=== PATIENT | male | born 1950 | race American Indian/Alaskan Native ===

== ENCOUNTER 2017-10-26 11:36 | Emergency (ER) | payer MEDICARE ==
[2017-10-26 15:33] VITALS: BP 108/76
--- NOTE | 2017-10-26 16:14 | XRay Report ---
FINAL REPORT EXAM: XR CHEST ROUTINE 2V HISTORY: recent pna [facility] TECHNIQUE: Two views of the chest Comparison: None FINDINGS: There are ill-defined foci suspicious for pulmonary nodules projecting over the left 5th posterior rib, 6 posterior rib and 8 posterior rib. There is also mild nodularity in the right lateral lung base. These findings are suspicious for pulmonary nodules. There is also mild irregularity of the thorax and a may represent healing rib fractures. There are healing rib fractures left posterior 7th and 8th ribs. The underlying lungs are emphysematous. Heart size is normal. The lateral left hemidiaphragm is even treated. There is mild peribronchial thickening. The imaged axial skeleton is unremarkable. IMPRESSION: Findings suspicious for multiple pulmonary nodules. There are also healing rib fractures. Recommend CT chest. Peribronchial thickening especially in the perihilar in inferior right medial lung base. No pleural effusion.
[2017-10-26 16:52] LABS: Basophils % (Auto) 0.4 % (0.0-1.8); Hematocrit 43.5 % (35.5-45.6); Hemoglobin 14.4 gm/dl (11.8-15.2); Lymphocytes # (Auto) 0.9 K/mm3 (1.2-5.4); Lymphocytes % (Auto) 13.8 % (13.4-35.0); Mean Corpuscular HGB Conc 33 % (32-34); Mean Corpuscular Hemoglobin 31 pg (28-32); Mean Corpuscular Volume 95 fl (84-94); Monocytes # (Auto) 0.3 K/mm3 (0.0-0.8); Monocytes % (Auto) 5.2 % (0.0-7.3); Platelet Count 323 K/mm3 (140-440); Red Cell Distribution Width 14.4 % (13.2-15.2)
[2017-10-26 17:09] LABS: Alanine Aminotransferase 18 units/L (7-56); Albumin 4.2 g/dL (3.9-5); BUN/Creatinine Ratio 15; Blood Urea Nitrogen 9 mg/dL (9-20); Calcium 9.2 mg/dL (8.4-10.2); Hemolysis Index 6
== END 2017-10-26 22:45 | disposition left against medical advice (07) ==
LOC: ED 11:36
DX: R06.09 Other forms of dyspnea (principal); R05 Cough; Z53.21 Procedure and treatment not carried out due to patient leaving prior to being seen by health care provider
CPT/HCPCS: 36415; 71046; 80053; 85025

== ENCOUNTER 2017-10-27 16:34 | Emergency (ER) | payer MEDICARE ==
[2017-10-27 17:46] VITALS: BP 110/72
--- NOTE | 2017-10-27 22:59 | Emergency Department Report ---
ED General Adult HPI - General Chief complaint: Medical Clearance Stated complaint: LAB RESULTS Time Seen by Provider: 10/27/17 22:31 Source: patient Mode of arrival: Ambulatory Limitations: No Limitations - History of Present Illness Initial comments: Patient is a 67-year-old -[place] male history of seizures bronchitis presents from [facility] living home complaint of cough productive clear yellow with nocturnal wheezing times one week patient states multiple sick contacts with URIs was sent by administration for med clearance chest x- xray patient denies fevers or chills or shortness of breath no chest pain no nausea vomiting Onset/Timin -: week(s) Radiation: non-radiation Severity scale (0 -10): 3 Quality: other (cough ) Consistency: intermittent Worsens with: none Associated Symptoms: cough, fever/chills. denies: confusion, chest pain, headaches, loss of appetite, malaise, nausea/vomiting, rash, seizure, shortness of breath, syncope, weakness Treatments Prior to Arrival: none - Related Data Previous Rx's Medication Instructions Recorded Last Taken Type ALBUTEROL Inhaler [ProAir HFA 2 puff IH QID PRN #1 inhalation 10/27/17 Unknown Rx Inhaler] Azithromycin [Zithromax Z-SANJU] 0 mg PO DAILY #6 tab 10/27/17 Unknown Rx Codeine Phosphate/Guaifenesin 5 ml PO TID PRN #120 ml 10/27/17 Unknown Rx [Guaifenesin-Codeine Syrup] predniSONE [Deltasone] 40 mg PO QDAY #10 tab 10/27/17 Unknown Rx Allergies Allergy/AdvReac Type Severity Reaction Status Date / Time No Known Allergies Allergy Verified 10/26/17 12:59 ED Review of Systems ROS: Stated complaint: LAB RESULTS Other details as noted in HPI Constitutional: chills, fever Eyes: denies: eye pain, eye discharge, vision change ENT: ear pain, throat pain, congestion. denies: hearing loss, epistaxis Respiratory: cough. denies: orthopnea, shortness of breath, SOB with exertion, SOB at rest, wheezing Cardiovascular: denies: chest pain, palpitations, dyspnea on exertion, edema, syncope, paroxysmal nocturnal dyspnea Endocrine: no symptoms reported. denies: excessive sweating, flushing, intolerance to cold, intolerance to heat Gastrointestinal: denies: as per HPI, nausea, vomiting, diarrhea, constipation Genitourinary: denies: urgency, dysuria, frequency, hematuria, discharge, testicular pain, testicular mass Musculoskeletal: denies: back pain, joint swelling, arthralgia Skin: denies: rash, lesions Neurological: denies: headache, weakness, paresthesias Psychiatric: denies: anxiety, depression Hematological/Lymphatic: denies: easy bleeding, easy bruising ED Past Medical Hx - Past Medical History Hx Seizures: Yes - Surgical History Past Surgical History?: No - Social History Smoking Status: Current Every Day Smoker Substance Use Type: Alcohol - Medications Home Medications: Home Medications Medication Instructions Recorded Confirmed Last Taken Type ALBUTEROL Inhaler [ProAir HFA 2 puff IH QID PRN #1 inhalation 10/27/17 Unknown Rx Inhaler] Azithromycin [Zithromax Z-SANJU] 0 mg PO DAILY #6 tab 10/27/17 Unknown Rx Codeine Phosphate/Guaifenesin 5 ml PO TID PRN #120 ml 10/27/17 Unknown Rx [Guaifenesin-Codeine Syrup] predniSONE [Deltasone] 40 mg PO QDAY #10 tab 10/27/17 Unknown Rx ED Physical Exam - General Limitations: No Limitations General appearance: alert, in no apparent distress - Head Head exam: Present: atraumatic, normocephalic - Eye Eye exam: Present: normal appearance, PERRL, EOMI Pupils: Present: normal accommodation - ENT ENT exam: Present: normal exam, mucous membranes moist (nose boggy clear post nasal drip ), TM's normal bilaterally - Expanded ENT Exam Expanded Ear exam: Present: normal external inspection Mouth exam: Present: tongue normal. Absent: trismus Throat exam: Positive: tonsillar erythema. Negative: tonsillar exudate, R peritonsillar mass, L peritonsillar mass - Neck Neck exam: Present: normal inspection, full ROM. Absent: tenderness, meningismus, lymphadenopathy, thyromegaly - Respiratory Respiratory exam: Present: normal lung sounds bilaterally. Absent: respiratory distress, wheezes, rales, rhonchi, stridor, chest wall tenderness - Cardiovascular Cardiovascular Exam: Present: regular rate, normal rhythm, normal heart sounds. Absent: systolic murmur, diastolic murmur, rubs, gallop - GI/Abdominal GI/Abdominal exam: Present: soft, normal bowel sounds. Absent: distended, tenderness, guarding, rebound, rigid, organomegaly, mass, bruit, pulsatile mass , hernia - Rectal Rectal exam: Present: deferred - Extremities Exam Extremities exam: Present: normal inspection - Back Exam Back exam: Present: normal inspection, full ROM. Absent: tenderness, CVA tenderness (R), CVA tenderness (L), muscle spasm, paraspinal tenderness, vertebral tenderness, rash noted - Neurological Exam Neurological exam: Present: alert, oriented X3, CN II-XII intact, normal gait, reflexes normal - Psychiatric Psychiatric exam: Present: normal affect, normal mood - Skin Skin exam: Present: warm, dry, intact, normal color. Absent: rash ED Course Vital Signs 10/27/17 17:44 Temperature 99.1 F Pulse Rate 98 H Respiratory 18 Rate Blood Pressure 110/72 O2 Sat by Pulse 97 Oximetry ED Medical Decision Making - Radiology Data Radiology results: report reviewed, image reviewed multiple nodules , healing rib fractures, , preibronchial thickening murmur - Medical Decision Making labs noted from yesterday normal chest x-ray noted from yesterday no change from previous with multiple nodules suspicious radiology recommends follow-up with PCP or or pulmonology exam:pt appears well nontoxic ent: tms normal, nose boggy clear post nasal drip no polyps no obstruction pharynx mild erythema no exudate no swelling no stridor, lungs clear no wheezing, cxr: no acute findings no opacities no infiltrates, multiple nodules, follow up chest CT recommended, known to patient as chronic has follow up scheduled at [facility] for follow up , lab noted normal: plan tx for bronchitis refill albuterol , follow up with [facility] as scheduled, Critical care attestation.: If time is entered above; I have spent that time in minutes in the direct care of this critically ill patient, excluding procedure time. ED Disposition Clinical Impression: Bronchitis, Pulmonary nodules URI (upper respiratory infection) Qualifiers: URI type: unspecified viral URI Qualified Code(s): J06.9 - Acute upper respiratory infection, unspecified Disposition: TO HOME OR SELFCARE Is pt being admited?: No Does the pt Need Aspirin: No Condition: Good Instructions: Chronic Bronchitis (ED) Prescriptions: ALBUTEROL Inhaler [ProAir HFA Inhaler] 2 puff IH QID PRN #1 inhalation PRN Reason: Shortness Of Breath Azithromycin [Zithromax Z-SANJU] 0 mg PO DAILY #6 tab Codeine Phosphate/Guaifenesin [Guaifenesin-Codeine Syrup] 5 ml PO TID PRN #120 ml PRN Reason: cough predniSONE [Deltasone] 40 mg PO QDAY #10 tab Referrals: [facility] [Outside] - 3-5 Days Forms: Work/School Release Form(ED) Time of Disposition: 23:10
== END 2017-10-27 22:55 | disposition home or self-care (01) ==
LOC: ED 16:34
DX: J40 Bronchitis, not specified as acute or chronic (principal); R91.8 Other nonspecific abnormal finding of lung field; F17.200 Nicotine dependence, unspecified, uncomplicated
CPT/HCPCS: 99282

== ENCOUNTER 2018-04-01 16:40 | Emergency (ER) | payer MEDICARE ==
[2018-04-01 17:12] VITALS: BP 133/89
[2018-04-01] MEDS ORDERED: MOTRIN PO ONE (20:40)
[2018-04-01] MEDS ORDERED: DECADRON IM ONE (20:40)
--- NOTE | 2018-04-01 20:42 | Emergency Department Report ---
- General Chief Complaint: Upper Respiratory Infection Stated Complaint: COUGHING UP BLOOD Time Seen by Provider: 04/01/18 20:24 Source: patient Mode of arrival: Ambulatory Limitations: No Limitations - History of Present Illness Initial Comments: 67-year-old -Honduran male was sent here from [facility] because he' s had a cough 1 week. Patient reports has a past medical history of hypertension, depression, anxiety, seizures, drug abuse and alcohol abuse. Patient denies any fever or chills. Patient does report he's been taken Mucinex for his cough. Patient also complains of pain in his left great toe he reports that it feels like his gout is flaring up. MD Complaint: cough Severity: moderate Severity scale (0 -10): 6 Quality: burning, stabbing Consistency: intermittent Improves With: nothing Worsens With: nothing Associated Symptoms: cough. denies: fever, chills, headache, rhinorrhea, nasal congestion, sore throat, nausea, vomiting Treatments Prior to Arrival: "cold medicine" - Related Data Previous Rx's Medication Instructions Recorded Last Taken Type ALBUTEROL Inhaler [ProAir HFA 2 puff IH QID PRN #1 inhalation 10/27/17 Unknown Rx Inhaler] Azithromycin [Zithromax Z-SANJU] 0 mg PO DAILY #6 tab 10/27/17 Unknown Rx Codeine Phosphate/Guaifenesin 5 ml PO TID PRN #120 ml 10/27/17 Unknown Rx [Guaifenesin-Codeine Syrup] predniSONE [Deltasone] 40 mg PO QDAY #10 tab 10/27/17 Unknown Rx Benzonatate [Tessalon Perles] 100 mg PO Q8HR #30 capsule 04/01/18 Unknown Rx Naproxen [Naprosyn] 500 mg PO BID #20 tablet 04/01/18 Unknown Rx Prednisone [predniSONE 10 mg 10 mg PO .TAPER #1 tab.ds.pk 04/01/18 Unknown Rx (6-Day Pack, 21 Tabs)] Allergies Allergy/AdvReac Type Severity Reaction Status Date / Time No Known Allergies Allergy Verified 10/26/17 12:59 ED Review of Systems ROS: Stated complaint: COUGHING UP BLOOD Other details as noted in HPI Respiratory: cough Musculoskeletal: arthralgia ED Past Medical Hx - Past Medical History Hx Hypertension: Yes Hx Seizures: Yes - Social History Smoking Status: Current Every Day Smoker Substance Use Type: None - Medications Home Medications: Home Medications Medication Instructions Recorded Confirmed Last Taken Type ALBUTEROL Inhaler [ProAir HFA 2 puff IH QID PRN #1 inhalation 10/27/17 Unknown Rx Inhaler] Azithromycin [Zithromax Z-SANJU] 0 mg PO DAILY #6 tab 10/27/17 Unknown Rx Codeine Phosphate/Guaifenesin 5 ml PO TID PRN #120 ml 10/27/17 Unknown Rx [Guaifenesin-Codeine Syrup] predniSONE [Deltasone] 40 mg PO QDAY #10 tab 10/27/17 Unknown Rx Benzonatate [Tessalon Perles] 100 mg PO Q8HR #30 capsule 04/01/18 Unknown Rx Naproxen [Naprosyn] 500 mg PO BID #20 tablet 04/01/18 Unknown Rx Prednisone [predniSONE 10 mg 10 mg PO .TAPER #1 tab.ds.pk 04/01/18 Unknown Rx (6-Day Pack, 21 Tabs)] ED Physical Exam - General Limitations: No Limitations - Eye Eye exam: Present: normal appearance - ENT ENT exam: Present: mucous membranes moist - Expanded ENT Exam Expanded Throat exam: Negative: tonsillar erythema, tonsillomegaly - Neck Neck exam: Present: full ROM. Absent: lymphadenopathy - Respiratory Respiratory exam: Present: rhonchi - Cardiovascular Cardiovascular Exam: Present: regular rate, normal rhythm. Absent: systolic murmur, diastolic murmur, rubs, gallop - GI/Abdominal GI/Abdominal exam: Present: soft, normal bowel sounds - Neurological Exam Neurological exam: Present: alert, oriented X3 - Psychiatric Psychiatric exam: Present: normal affect, normal mood - Skin Skin exam: Present: warm, dry, intact, normal color. Absent: rash ED Course Vital Signs 04/01/18 17:10 Temperature 98.8 F Pulse Rate 83 Respiratory 16 Rate Blood Pressure 133/89 O2 Sat by Pulse 96 Oximetry ED Medical Decision Making - Lab Data Result diagrams: 04/01/18 20:53 - Radiology Data Radiology results: report reviewed, image reviewed - Medical Decision Making Patient has been evaluated by this provider fast track. Patient's been ordered ibuprofen and steroid. Chest x-ray was ordered which is unremarkable. We'll discharge on kirk Dillard Critical care attestation.: If time is entered above; I have spent that time in minutes in the direct care of this critically ill patient, excluding procedure time. ED Disposition Clinical Impression: Cough Gout attack Qualifiers: Gout site: toe Gout etiology: unspecified cause Laterality: left Qualified Code (s): M10.9 - Gout, unspecified Disposition: TO HOME OR SELFCARE Is pt being admited?: No Does the pt Need Aspirin: No Condition: Stable Instructions: Acute Gouty Arthritis (ED), Acute Cough (ED) Additional Instructions: Please take pain medication and cough medication as prescribed. If her symptoms persist or gets worse please follow-up with your primary care provider. Prescriptions: Benzonatate [Tessalon Perles] 100 mg PO Q8HR #30 capsule Naproxen [Naprosyn] 500 mg PO BID #20 tablet Prednisone [predniSONE 10 mg (6-Day Pack, 21 Tabs)] 10 mg PO .TAPER #1 tab.ds.pk Referrals: PRIMARY CARE, [Primary Care Provider] - 3-5 Days [facility] [Provider Group] - 3-5 Days
[2018-04-01 21:11] LABS: Basophils % (Auto) 0.8 % (0.0-1.8); Eosinophils # (Auto) 0.1 K/mm3 (0.0-0.4); Hematocrit 45.2 % (35.5-45.6); Lymphocytes # (Auto) 1.8 K/mm3 (1.2-5.4); Lymphocytes % (Auto) 28.8 % (13.4-35.0); Mean Corpuscular HGB Conc 33 % (32-34); Mean Corpuscular Hemoglobin 32 pg (28-32); Mean Corpuscular Volume 95 fl (84-94); Monocytes # (Auto) 0.5 K/mm3 (0.0-0.8); Monocytes % (Auto) 8.3 % (0.0-7.3); Platelet Count 226 K/mm3 (140-440); Red Blood Count 4.77 M/mm3 (3.65-5.03); Red Cell Distribution Width 15.8 % (13.2-15.2)
--- NOTE | 2018-04-01 21:42 | XRay Report ---
FINAL REPORT PROCEDURE: Chest. TECHNIQUE: PA and lateral views. HISTORY: Cough. COMPARISON: Chest 10/26/2017. FINDINGS: The heart size is normal. The lungs are grossly clear. There may be previous granulomatous disease. There is some linear scarring that is probably in the lingula. There is mild elevation of the left hemidiaphragm. There are no pleural effusions. The soft tissues and regional skeleton are unremarkable. IMPRESSION: No evidence of acute disease.
== END 2018-04-01 22:25 | disposition home or self-care (01) ==
LOC: ED 16:40
DX: M10.9 Gout, unspecified (principal); R05 Cough; I10 Essential (primary) hypertension; F17.200 Nicotine dependence, unspecified, uncomplicated
CPT/HCPCS: 36415; 71046; 85025; 96372; 99284; J1100

== ENCOUNTER 2018-12-29 21:50 | Emergency (ER) | payer MEDICARE ==
[2018-12-29 22:04] VITALS: BP 156/104
--- NOTE | 2018-12-29 22:16 | Emergency Department Report ---
Chief Complaint: Medical Clearance Stated Complaint: MEDICAL CLEARANCE Time Seen by Provider: 12/29/18 22:14 - HPI History of Present Illness: This is a 68 y.o. male that presents for medical clearance to return to [facility] for detox. Patient states he relapsed on cocaine and alcohol a few days ago. - Exam Vital Signs: Vital Signs 12/29/18 12/29/18 22:03 22:11 Temperature 97.8 F 97.8 F Pulse Rate 87 87 Respiratory 16 16 Rate Blood Pressure 156/104 Blood Pressure 156/104 [Right] O2 Sat by Pulse 96 96 Oximetry MSE screening note: Focused history and physical exam performed. Due to findings the following was ordered: labs ED Disposition for MSE Condition: Stable
[2018-12-29 23:14] LABS: Basophils % (Auto) 0.8 % (0.0-1.8); Eosinophils # (Auto) 0.2 K/mm3 (0.0-0.4); Eosinophils % (Auto) 2.8 % (0.0-4.3); Hematocrit 45.9 % (35.5-45.6); Lymphocytes # (Auto) 1.8 K/mm3 (1.2-5.4); Lymphocytes % (Auto) 30.5 % (13.4-35.0); Mean Corpuscular HGB Conc 35 % (32-34); Mean Corpuscular Volume 94 fl (84-94); Monocytes # (Auto) 0.4 K/mm3 (0.0-0.8); Platelet Count 182 K/mm3 (140-440); Red Blood Count 4.89 M/mm3 (3.65-5.03); Red Cell Distribution Width 14.4 % (13.2-15.2)
[2018-12-29 23:40] LABS: Bilirubin,Urine NEG (Negative); Blood,Urine SM (Negative); Color,Urine Yellow (Yellow); Mucus,Urine FEW /HPF; Protein,Urine <15 mg/dL mg/dL (Negative); Urobilinogen,Urine < 2.0 mg/dL (<2.0)
[2018-12-29 23:42] LABS: Amphetamine Screen,Urine PRESUMPTIVE NEGATIVE; Benzodiazepines Screen,Urine PRESUMPTIVE NEGATIVE; Cannabinoid Screen,Urine PRESUMPTIVE NEGATIVE; Cocaine Screen,Urine PRESUMPTIVE NEGATIVE; Methadone Screen,Urine PRESUMPTIVE NEGATIVE; Opiate Screen,Urine PRESUMPTIVE NEGATIVE
--- NOTE | 2018-12-30 01:31 | Emergency Department Report ---
ED General Adult HPI - General Chief complaint: Medical Clearance Stated complaint: MEDICAL CLEARANCE Time Seen by Provider: 12/29/18 22:14 Source: patient, RN notes reviewed, old records reviewed Mode of arrival: Ambulatory Limitations: No Limitations - History of Present Illness Initial comments: This is a 68-year-old gentleman who presents to the emergency room with a request for medical clearance for detoxification. He reports that he would like to detox from "alcohol and drugs." He reports no recent ingestions within the past 24 hours. He denies physical pain. He denies hallucinations, suicidality, homicidality, accessory condoms, firearms. He has chronic plantar bilateral foot pressure, pain, which is not a new, worsening or different. This is sharp and aching, increases with palpation, decreases with rest. It is present for months. It does not radiate anywhere. Severity scale (0 -10): 0 Associated Symptoms: denies other symptoms - Related Data Previous Rx's Medication Instructions Recorded Last Taken Type ALBUTEROL Inhaler (OR & NICU) 2 puff IH QID PRN #1 inhalation 10/27/17 Unknown Rx [ProAir HFA Inhaler] Azithromycin [Zithromax Z-SANJU] 0 mg PO DAILY #6 tab 10/27/17 Unknown Rx Codeine Phosphate/Guaifenesin 5 ml PO TID PRN #120 ml 10/27/17 Unknown Rx [Guaifenesin-Codeine Syrup] predniSONE [Deltasone] 40 mg PO QDAY #10 tab 10/27/17 Unknown Rx Benzonatate [Tessalon Perles] 100 mg PO Q8HR #30 capsule 04/01/18 Unknown Rx Naproxen [Naprosyn] 500 mg PO BID #20 tablet 04/01/18 Unknown Rx Prednisone [predniSONE 10 mg 10 mg PO .TAPER #1 tab.ds.pk 04/01/18 Unknown Rx (6-Day Pack, 21 Tabs)] Allergies Allergy/AdvReac Type Severity Reaction Status Date / Time No Known Allergies Allergy Verified 10/26/17 12:59 ED Review of Systems ROS: Stated complaint: MEDICAL CLEARANCE Other details as noted in HPI Constitutional: denies: fever, malaise Eyes: denies: vision change ENT: denies: epistaxis Respiratory: denies: cough Cardiovascular: denies: chest pain Gastrointestinal: denies: abdominal pain Genitourinary: denies: dysuria Musculoskeletal: arthralgia, myalgia Skin: denies: lesions Neurological: denies: weakness Psychiatric: denies: anxiety, depression, auditory hallucinations, visual hallucinations, homicidal thoughts, suicidal thoughts ED Past Medical Hx - Past Medical History Previous Medical History?: Yes Hx Hypertension: Yes Hx Seizures: Yes Additional medical history: polysubstance abuse - Surgical History Past Surgical History?: No - Social History Smoking Status: Current Every Day Smoker Substance Use Type: Alcohol, Cocaine - Medications Home Medications: Home Medications Medication Instructions Recorded Confirmed Last Taken Type ALBUTEROL Inhaler (OR & NICU) 2 puff IH QID PRN #1 inhalation 10/27/17 Unknown Rx [ProAir HFA Inhaler] Azithromycin [Zithromax Z-SANJU] 0 mg PO DAILY #6 tab 10/27/17 Unknown Rx Codeine Phosphate/Guaifenesin 5 ml PO TID PRN #120 ml 10/27/17 Unknown Rx [Guaifenesin-Codeine Syrup] predniSONE [Deltasone] 40 mg PO QDAY #10 tab 10/27/17 Unknown Rx Benzonatate [Tessalon Perles] 100 mg PO Q8HR #30 capsule 04/01/18 Unknown Rx Naproxen [Naprosyn] 500 mg PO BID #20 tablet 04/01/18 Unknown Rx Prednisone [predniSONE 10 mg 10 mg PO .TAPER #1 tab.ds.pk 04/01/18 Unknown Rx (6-Day Pack, 21 Tabs)] ED Physical Exam - General Limitations: No Limitations General appearance: alert, in no apparent distress - Head Head exam: Present: atraumatic, normocephalic - Eye Eye exam: Present: normal appearance, EOMI. Absent: nystagmus - ENT ENT exam: Present: normal orophraynx (patient has poor dentition), normal external ear exam - Neck Neck exam: Present: normal inspection, full ROM. Absent: tenderness, meningismus - Respiratory Respiratory exam: Present: normal lung sounds bilaterally. Absent: respiratory distress, wheezes, rales, rhonchi, stridor, chest wall tenderness - Cardiovascular Cardiovascular Exam: Present: regular rate, normal rhythm, normal heart sounds. Absent: bradycardia, tachycardia, irregular rhythm, systolic murmur, diastolic murmur, rubs, gallop - GI/Abdominal GI/Abdominal exam: Present: soft. Absent: distended, tenderness, guarding, rebound, rigid, pulsatile mass - Rectal Rectal exam: Present: deferred - Extremities Exam Extremities exam: Present: normal inspection, full ROM, other (2+ pulses noted in the bilateral upper, lower extremities. Compartments soft. No long bony tenderness. The pelvis is stable.). Absent: pedal edema, joint swelling, calf tenderness - Back Exam Back exam: Present: normal inspection, full ROM. Absent: tenderness, CVA ten derness (R), paraspinal tenderness, vertebral tenderness - Neurological Exam Neurological exam: Present: alert, oriented X3, CN II-XII intact, normal gait, other (Extraocular movements intact. Tongue midline. No facial droop. Facial sensation intact to light touch in the V1, V2, V3 distribution bilaterally. 5 and 5 strength in 4 extremities.. Sensation is intact to light touch in 4 extremities.). Absent: motor sensory deficit - Psychiatric Psychiatric exam: Absent: homicidal ideation, suicidal ideation - Skin Skin exam: Present: warm, dry, intact, normal color. Absent: rash ED Course Vital Signs 12/29/18 12/29/18 22:03 22:11 Temperature 97.8 F 97.8 F Pulse Rate 87 87 Respiratory 16 16 Rate Blood Pressure 156/104 Blood Pressure 156/104 [Right] O2 Sat by Pulse 96 96 Oximetry - Reevaluation(s) Reevaluation #1: 12/30/18 01:29 Differential diagnosis, including but not limited to: Medical clearance, general medical evaluation Assessment and plan: 68-year-old gentleman, with a complaint of medical clearance for detox. He is afebrile, with reassuring vital signs, and is clinically sober. He does not meet 1013 criteria, he does not have an an acutely medically emergent condition, and he is not acutely psychiatrically decompensated. He does not appear to have an acute medical contraindication to psychiatric evaluation, and placement at this time. Reevaluation #2: 12/30/18 02:11 Lab Results 12/29/18 12/29/18 12/29/18 Range/Units 22:40 22:40 22:40 WBC (4.5-11.0) K/mm3 RBC (3.65-5.03) M/mm3 Hgb (11.8-15.2) gm/dl Hct (35.5-45.6) % MCV (84-94) fl MCH (28-32) pg MCHC (32-34) % RDW (13.2-15.2) % Plt Count (140-440) K/mm3 Lymph % (Auto) (13.4-35.0) % [place] % (Auto) (0.0-7.3) % Eos % (Auto) (0.0-4.3) % Baso % (Auto) (0.0-1.8) % Lymph # (1.2-5.4) K/mm3 [place] # (0.0-0.8) K/mm3 Eos # (0.0-0.4) K/mm3 Baso # (0.0-0.1) K/mm3 Seg Neutrophils % (40.0-70.0) % Seg Neutrophils # (1.8-7.7) K/mm3 Sodium (137-145) mmol/L Potassium (3.6-5.0) mmol/L Chloride (98-107) mmol/L Carbon Dioxide (22-30) mmol/L Anion Gap mmol/L BUN (9-20) mg/dL Creatinine (0.8-1.5) mg/dL Estimated GFR ml/min BUN/Creatinine Ratio % Glucose (75-100) mg/dL Calcium (8.4-10.2) mg/dL Urine Color (Yellow) Urine Turbidity (Clear) Urine pH (5.0-7.0) Ur Specific [place] (1.003-1.030) Urine Protein (Negative) mg/dL Urine Glucose (UA) (Negative) mg/dL Urine Ketones (Negative) mg/dL Urine Blood (Negative) Urine Nitrite (Negative) Urine Bilirubin (Negative) Urine Urobilinogen (<2.0) mg/dL Ur Leukocyte Esterase (Negative) Urine WBC (Auto) (0.0-6.0) /HPF Urine RBC (Auto) (0.0-6.0) /HPF U Epithel Cells (Auto) (0-13.0) /HPF Urine Mucus /HPF Salicylates < 0.3 L (2.8-20.0) mg/dL Urine Opiates Screen Urine Methadone Screen Acetaminophen < 5.0 L (10.0-30.0) ug/mL Ur Barbiturates Screen Ur Phencyclidine Scrn Ur Amphetamines Screen U Benzodiazepines Scrn Urine Cocaine Screen U Marijuana (THC) Screen Drugs of Abuse Note Plasma/Serum Alcohol 0.05 (0-0.07) % 12/29/18 12/29/18 12/29/18 Range/Units 22:40 22:45 22:45 WBC 5.8 (4.5-11.0) K/mm3 RBC 4.89 (3.65-5.03) M/mm3 Hgb 16.0 H (11.8-15.2) gm/dl Hct 45.9 H (35.5-45.6) % MCV 94 (84-94) fl MCH 33 H (28-32) pg MCHC 35 H (32-34) % RDW 14.4 (13.2-15.2) % Plt Count 182 (140-440) K/mm3 Lymph % (Auto) 30.5 (13.4-35.0) % [place] % (Auto) 7.0 (0.0-7.3) % Eos % (Auto) 2.8 (0.0-4.3) % Baso % (Auto) 0.8 (0.0-1.8) % Lymph # 1.8 (1.2-5.4) K/mm3 [place] # 0.4 (0.0-0.8) K/mm3 Eos # 0.2 (0.0-0.4) K/mm3 Baso # 0.0 (0.0-0.1) K/mm3 Seg Neutrophils % 58.9 (40.0-70.0) % Seg Neutrophils # 3.4 (1.8-7.7) K/mm3 Sodium (137-145) mmol/L Potassium (3.6-5.0) mmol/L Chloride (98-107) mmol/L Carbon Dioxide (22-30) mmol/L Anion Gap mmol/L BUN (9-20) mg/dL Creatinine (0.8-1.5) mg/dL Estimated GFR ml/min BUN/Creatinine Ratio % Glucose (75-100) mg/dL Calcium (8.4-10.2) mg/dL Urine Color Yellow (Yellow) Urine Turbidity Clear (Clear) Urine pH 5.0 (5.0-7.0) Ur Specific [employer] [place] 1.013 (1.003-1.030) Urine Protein <15 mg/dl (Negative) mg/dL Urine Glucose (UA) Neg (Negative) mg/dL Urine Ketones Neg (Negative) mg/dL Urine Blood Sm (Negative) Urine Nitrite Neg (Negative) Urine Bilirubin Neg (Negative) Urine Urobilinogen < 2.0 (<2.0) mg/dL Ur Leukocyte Esterase Neg (Negative) Urine WBC (Auto) 2.0 (0.0-6.0) /HPF Urine RBC (Auto) 2.0 (0.0-6.0) /HPF U Epithel Cells (Auto) < 1.0 (0-13.0) /HPF Urine Mucus Few /HPF Salicylates (2.8-20.0) mg/dL Urine Opiates Screen Presumptive negative Urine Methadone Screen Presumptive negative Acetaminophen (10.0-30.0) ug/mL Ur Barbiturates Screen Presumptive negative Ur Phencyclidine Scrn Presumptive negative Ur Amphetamines Screen Presumptive negative U Benzodiazepines Scrn Presumptive negative Urine Cocaine Screen Presumptive negative U Marijuana (THC) Screen Presumptive negative Drugs of Abuse Note Disclamer Plasma/Serum Alcohol (0-0.07) % / Range/Units 01:34 WBC (4.5-11.0) K/mm3 RBC (3.65-5.03) M/mm3 Hgb (11.8-15.2) gm/dl Hct (35.5-45.6) % MCV (84-94) fl MCH (28-32) pg MCHC (32-34) % RDW (13.2-15.2) % Plt Count (140-440) K/mm3 Lymph % (Auto) (13.4-35.0) % [place] % (Auto) (0.0-7.3) % Eos % (Auto) (0.0-4.3) % Baso % (Auto) (0.0-1.8) % Lymph # (1.2-5.4) K/mm3 [place] # (0.0-0.8) K/mm3 Eos # (0.0-0.4) K/mm3 Baso # (0.0-0.1) K/mm3 Seg Neutrophils % (40.0-70.0) % Seg Neutrophils # (1.8-7.7) K/mm3 Sodium 139 (137-145) mmol/L Potassium 3.6 (3.6-5.0) mmol/L Chloride 102.9 (98-107) mmol/L Carbon Dioxide 26 (22-30) mmol/L Anion Gap 14 mmol/L BUN 6 L (9-20) mg/dL Creatinine 0.6 L (0.8-1.5) mg/dL Estimated GFR > 60 ml/min BUN/Creatinine Ratio 10 % Glucose 107 H (75-100) mg/dL Calcium 8.9 (8.4-10.2) mg/dL Urine Color (Yellow) Urine Turbidity (Clear) Urine pH (5.0-7.0) Ur Specific [employer] [place] (1.003-1.030) Urine Protein (Negative) mg/dL Urine Glucose (UA) (Negative) mg/dL Urine Ketones (Negative) mg/dL Urine Blood (Negative) Urine Nitrite (Negative) Urine Bilirubin (Negative) Urine Urobilinogen (<2.0) mg/dL Ur Leukocyte Esterase (Negative) Urine WBC (Auto) (0.0-6.0) /HPF Urine RBC (Auto) (0.0-6.0) /HPF U Epithel Cells (Auto) (0-13.0) /HPF Urine Mucus /HPF Salicylates (2.8-20.0) mg/dL Urine Opiates Screen Urine Methadone Screen Acetaminophen (10.0-30.0) ug/mL Ur Barbiturates Screen Ur Phencyclidine Scrn Ur Amphetamines Screen U Benzodiazepines Scrn Urine Cocaine Screen U Marijuana (THC) Screen Drugs of Abuse Note Plasma/Serum Alcohol (0-0.07) % ED Medical Decision Making - Lab Data Result diagrams: 12/29/18 22:40 12/30/18 01:34 Vital Signs 12/29/18 12/29/18 22:03 22:11 Temperature 97.8 F 97.8 F Pulse Rate 87 87 Respiratory 16 16 Rate Blood Pressure 156/104 Blood Pressure 156/104 [Right] O2 Sat by Pulse 96 96 Oximetry Labs 12/29/18 12/29/18 12/29/18 22:40 22:40 22:40 WBC RBC Hgb Hct MCV MCH MCHC RDW Plt Count Lymph % (Auto) [place] % (Auto) Eos % (Auto) Baso % (Auto) Lymph # [place] # Eos # Baso # Seg Neutrophils % Seg Neutrophils # Urine Color Urine Turbidity Urine pH Ur Specific [place] Urine Protein Urine Glucose (UA) Urine Ketones Urine Blood Urine Nitrite Urine Bilirubin Urine Urobilinogen Ur Leukocyte Esterase Urine WBC (Auto) Urine RBC (Auto) U Epithel Cells (Auto) Urine Mucus Salicylates < 0.3 L Urine Opiates Screen Urine Methadone Screen Acetaminophen < 5.0 L Ur Barbiturates Screen Ur Phencyclidine Scrn Ur Amphetamines Screen U Benzodiazepines Scrn Urine Cocaine Screen U Marijuana (THC) Screen Drugs of Abuse Note Plasma/Serum Alcohol 0.05 12/29/18 12/29/18 12/29/18 22:40 22:45 22:45 WBC 5.8 RBC 4.89 Hgb 16.0 H Hct 45.9 H MCV 94 MCH 33 H MCHC 35 H RDW 14.4 Plt Count 182 Lymph % (Auto) 30.5 [place] % (Auto) 7.0 Eos % (Auto) 2.8 Baso % (Auto) 0.8 Lymph # 1.8 [place] # 0.4 Eos # 0.2 Baso # 0.0 Seg Neutrophils % 58.9 Seg Neutrophils # 3.4 Urine Color Yellow Urine Turbidity Clear Urine pH 5.0 [address] [place] 1.013 Urine Protein <15 mg/dl Urine Glucose (UA) Neg Urine Ketones Neg Urine Blood Sm Urine Nitrite Neg Urine Bilirubin Neg Urine Urobilinogen < 2.0 Ur Leukocyte Esterase Neg Urine WBC (Auto) 2.0 Urine RBC (Auto) 2.0 U Epithel Cells (Auto) < 1.0 Urine Mucus Few Salicylates Urine Opiates Screen Presumptive negative Urine Methadone Screen Presumptive negative Acetaminophen Ur Barbiturates Screen Presumptive negative Ur Phencyclidine Scrn Presumptive negative Ur Amphetamines Screen Presumptive negative U Benzodiazepines Scrn Presumptive negative Urine Cocaine Screen Presumptive negative U Marijuana (THC) Screen Presumptive negative Drugs of Abuse Note Disclamer Plasma/Serum Alcohol Critical care attestation.: If time is entered above; I have spent that time in minutes in the direct care of this critically ill patient, excluding procedure time. ED Disposition Clinical Impression: Medical clearance for psychiatric admission, Desire for detoxification Disposition: [id number] TO HOME OR SELFCARE Is pt being admited?: No Does the pt Need Aspirin: No Condition: Stable Additional Instructions: Discontinued consumption of alcohol, and intoxicating drugs. The patient does not presently have an emergent condition that would preclude detoxification at this time. Continue current outpatient medications, follow up with a routine primary care doctor within the next 6-8 weeks, and return to the emergency room right away with you, worsened or different symptoms, or new symptoms not present on the initial ER evaluation. Referrals: TREVOR FRASER MD [Primary Care Provider] - 3-5 Days
[2018-12-30 02:03] LABS: BUN/Creatinine Ratio 10; Blood Urea Nitrogen 6 mg/dL (9-20); Calcium 8.9 mg/dL (8.4-10.2); Hemolysis Index 6
== END 2018-12-30 03:35 | disposition home or self-care (01) ==
LOC: ED 21:50
DX: Z00.8 Encounter for other general examination (principal); I10 Essential (primary) hypertension; F17.200 Nicotine dependence, unspecified, uncomplicated; F14.10 Cocaine abuse, uncomplicated
CPT/HCPCS: 36415; 80048; 80307; 81001; 85025; 99283; G0480; 80320